=== PATIENT | female | born 2000 ===

== ENCOUNTER 2022-06-06 20:06 | Emergency (ER) | payer BC ==
[2022-06-06] MEDS ORDERED: Sodium Chloride 0.9% 1,000 ML IV ONE (20:12)
[2022-06-06] MEDS ORDERED: diphenhydrAMINE 50 MG/ML SDV IVPUSH ONE ×2 (20:12→20:16)
[2022-06-06] MEDS ORDERED: methylPREDNISolone Sodium Succinate 125 MG/2 ML SDV IVPUSH ONE (20:12)
[2022-06-06] MEDS ORDERED: Famotidine 20 MG/2 ML SDV IVPUSH ONE (20:13)
[2022-06-06 21:51] VITALS: BP 130/69; PULSE 87
== END 2022-06-06 21:51 | disposition home or self-care (01) ==
LOC: MW.ED 20:06
DX: T78.1XXA Other adverse food reactions, not elsewhere classified, initial encounter (principal); Z88.0 Allergy status to penicillin; Z91.018 Allergy to other foods
CPT/HCPCS: 96361; 96374; 96375; 99283; J1200; J2930; J3490; J7030